=== PATIENT | male | born 1950 | race Caucasian/White ===

== ENCOUNTER 2018-08-22 17:57 | Emergency (ER) | payer MEDICARE, BC ==
[2018-08-22 18:46] LABS: ADD MAN DIFF? NO
[2018-08-22 18:48] LABS: WHITE BLOOD COUNT 9.6 10^3/ul (4.8-10.8)
[2018-08-22 18:49] LABS: BASOPHIL # 0.1 10^3/ul (0.0-0.1); BASOPHILS % 0.5 % (0.0-2.0); EOSINOPHILS # 0.4 10^3/ul (0.0-0.5); EOSINOPHILS % 3.8 % (0.0-7.0); HEMATOCRIT 35.9 % (42.0-52.0); HEMOGLOBIN 12.2 g/dl (14.0-18.0); LYMPHOCYTES % 20.8 % (15.0-51.0); MEAN CORPUSCULAR HEMOGLOBIN 30.4 pg (29.0-33.0); MEAN CORPUSCULAR VOLUME 89.5 fl (82.0-101.0); MONOCYTE # 0.7 10^3/ul (0.3-0.9); NEUTROPHIL # 6.5 10^3/ul (1.6-7.5); NEUTROPHILS % 67.6 % (39.0-77.0); PLATELET COUNT 182 10^3/UL (140-415); RED BLOOD COUNT 4.01 10^6/ul (4.70-6.10); RED CELL DISTRIBUTION WIDTH 13.1 % (11.5-14.5)
[2018-08-22 19:10] LABS: ANION GAP 9 (5-13); BLOOD UREA NITROGEN 20 mg/dl (7-20); CALCIUM 10.3 mg/dl (8.4-10.2); CARBON DIOXIDE 32 mmol/L (21-31); CHLORIDE 101 mmol/L (97-110); CREATININE 1.06 mg/dl (0.61-1.24); Estimated GFR > 60 mL/min (>60); GLUCOSE 109 mg/dl (70-220); POTASSIUM 4.2 mmol/L (3.5-5.1); SODIUM 142 mmol/L (135-144)
[2018-08-22 19:22] LABS: TROPONIN-I < 0.012 ng/ml (0.000-0.120)
[2018-08-22] MEDS: HYDROCODONE/APAP (5/325) TAB PO (19:30)
== END 2018-08-22 21:30 | disposition home or self-care (01) ==
LOC: E/R 17:57
DX: R55 Syncope and collapse (principal); Z96.649 Presence of unspecified artificial hip joint
CPT/HCPCS: 36415; 70450; 72100; 72125; 80048; 84484; 85025; 93005; 99285-25